=== PATIENT | male | born 1960 | race Two or more races ===

== ENCOUNTER 2021-05-15 07:02 | Observation (INO) ==
[2021-05-15] MEDS ORDERED: methylPREDNISolone 125 mg 2 ML VIAL ONE (07:05)
[2021-05-15] MEDS ORDERED: Albuterol/Ipratropium NEB.SOL (2.5/0.5 MG) 3 ML NEB.SOLN ONE ×2 (07:05→07:09)
[2021-05-15] MEDS ORDERED: Magnesium Sulfate 2 gm BAG 2 GM/50 ML BAG ONE (07:06)
[2021-05-15] MEDS ORDERED: Albuterol/Ipratropium NEB.SOL (2.5/0.5 MG) 3 ML NEB.SOLN INH ONE ×3 (07:10)
[2021-05-15] MEDS ORDERED: Magnesium Sulfate 2 gm BAG 2 GM/50 ML BAG IVPB ONE ×2 (07:10→08:00)
[2021-05-15] MEDS ORDERED: methylPREDNISolone 125 mg 2 ML VIAL IV ONE (07:10)
[2021-05-15] MEDS ORDERED: NS 0.9% 1000 ml BAG 1,000 ML IV ONE (07:13)
[2021-05-15 07:26] LABS: PCO2 Arterial 34 mmHg (35-45); PO2 Arterial 169 mmHg (80-100)
[2021-05-15 07:44] LABS: ABS Basophils 0.1 10^3/ul (0-0.2); ABS Eosinophils 0.1 10^3/ul (0-0.6); ABS Lymphocytes 1.1 10^3/ul (1.0-4.8); ABS Monocytes 0.7 10^3/ul (0-0.8); ABS Neutrophils 9.1 10^3/ul (1.5-7.7); Eosinophil % 1.1 %; Hematocrit 35 % (42-52); Hemoglobin 11.6 g/dL (14.0-18.0); Lymphocyte % 9.8 %; Mean Corpuscular HGB Conc 33 g/dL (31-36); Mean Corpuscular Hemoglobin 28 pg (27-31); Mean Corpuscular Volume 84 fL (80-94); Mean Platelet Volume 8.1 fL (7.4-10.4); Platelet Count 343 10^3/uL (150-450); Red Blood Count 4.21 10^6 /uL (4.18-5.48); Red Cell Distribution Width 16 % (10-15); White Blood Count 11.1 10^3/uL (3.5-10.8)
[2021-05-15 07:57] LABS: Troponin I 0.02 ng/mL (<0.03)
[2021-05-15 07:58] LABS: ALT 17 U/L (7-52); AST 25 U/L (13-39); Albumin 4.4 g/dL (3.2-5.2); Albumin/Globulin Ratio 1.2 (1-3); Alkaline Phosphatase 73 U/L (35-149); Anion Gap 13 mmol/L (2-11); Blood Urea Nitrogen 11 mg/dL (6-24); CO2 Carbon Dioxide 27 mmol/L (22-32); Calcium 9.2 mg/dL (8.6-10.3); Chloride 98 mmol/L (101-111); Globulin 3.7 g/dL (2-4); Glucose 146 mg/dL (70-100); Magnesium 1.1 mg/dL (1.9-2.7); Potassium 3.3 mmol/L (3.5-5.0); Sodium 138 mmol/L (135-145); Total Protein 8.1 g/dL (6.4-8.9); eGFR CKD-EPI 98.4 (>60)
[2021-05-15] MEDS ORDERED: Furosemide 40 mg/4 ml IV VIAL IV SLOW PU ONE (08:07)
[2021-05-15] MEDS ORDERED: Potassium Chlor 20 meq TAB.ER PO ONE (08:14)
[2021-05-15 08:20] LABS: Alcohol, S < 13 mg/dL (<13)
[2021-05-15] MEDS ORDERED: Dextrose 50% Syringe 50 ml 25 GM/50 ML SYRINGE IV PUSH PRN ×3 (08:21→18:37)
[2021-05-15] MEDS ORDERED: Ondansetron 4 mg VIAL 2 MG/ML 2 ml VIAL IV PRN (08:26)
[2021-05-15] MEDS ORDERED: Thiamine 100 MG/ML 2 ml VIAL (200 mg) IM ONE (09:01)
[2021-05-15] MEDS ORDERED: Albuterol HFA INHALER 8 gm MDI INH PRN (09:16)
[2021-05-15] MEDS ORDERED: Albuterol 2.5mg/3 ml (0.083%) NEB.SOLN INH PRN (09:16)
[2021-05-15] MEDS ORDERED: Nicotine Lozenge mini 2 MG LOZNG.MINI MT PRN (09:24)
[2021-05-15] MEDS: Nicotine PATCH 14 MG/24 HR PATCH TRANSDERM SCH (10:36)
[2021-05-15] MEDS: PAIN RELIEVING RUB (MENTHOL/SALICYLATE) 1 APPLIC TUBE TOPICAL SCH ×3 (11:00→20:20)
[2021-05-15 11:52] LABS: Hepatitis C Antibody Negative (Negative)
[2021-05-15] MEDS ORDERED: Furosemide 20 mg/2 ml IV VIAL IV SLOW PU ONE (17:00)
[2021-05-15 17:16] LABS: Anion Gap 12 mmol/L (2-11); CO2 Carbon Dioxide 25 mmol/L (22-32); Calcium 8.7 mg/dL (8.6-10.3); Chloride 96 mmol/L (101-111); Magnesium 1.9 mg/dL (1.9-2.7); Potassium 4.2 mmol/L (3.5-5.0); Sodium 133 mmol/L (135-145)
[2021-05-15 17:22] LABS: Blood Urea Nitrogen 16 mg/dL (6-24); Glucose 436 mg/dL (70-100); Glucose Confirmatory 436 mg/dL (70-100); eGFR CKD-EPI 83.2 (>60)
[2021-05-15 19:09] LABS: Glucose Confirmatory 441 mg/dL (70-100)
[2021-05-15] MEDS: Insulin GLARGINE 100 un/ml 10 ml VIAL SUBCUT SCH (19:19)
[2021-05-15 19:52] LABS: HIV 4th Generation Nonreactive (Nonreactive)
[2021-05-15] MEDS: Lidocaine PATCH 5% PATCH TRANSDERM SCH (21:51)
[2021-05-15] MEDS: Lidocaine Patch REMOVE NOTE PATCH OFF SCH (21:53)
[2021-05-16 05:51] LABS: ABS Lymphocytes 0.9 10^3/ul (1.0-4.8); ABS Monocytes 0.5 10^3/ul (0-0.8); ABS Neutrophils 8.7 10^3/ul (1.5-7.7); Hematocrit 35 % (42-52); Hemoglobin 11.5 g/dL (14.0-18.0); Lymphocyte % 8.9 %; Mean Corpuscular HGB Conc 33 g/dL (31-36); Mean Corpuscular Hemoglobin 28 pg (27-31); Mean Corpuscular Volume 83 fL (80-94); Mean Platelet Volume 7.7 fL (7.4-10.4); Platelet Count 291 10^3/uL (150-450); Red Blood Count 4.16 10^6 /uL (4.18-5.48); Red Cell Distribution Width 16 % (10-15); White Blood Count 10.1 10^3/uL (3.5-10.8)
[2021-05-16 06:13] LABS: Calcium 8.2 mg/dL (8.6-10.3); Magnesium 1.7 mg/dL (1.9-2.7); Potassium 3.5 mmol/L (3.5-5.0); eGFR CKD-EPI 100.6 (>60)
[2021-05-16] MEDS: CMCS:FLUTICAS/UMECLI/VILANT 100-62.5-25 MDI (NF) INH SCH (07:36)
[2021-05-16] MEDS: Nicotine PATCH 14 MG/24 HR PATCH TRANSDERM SCH (07:37)
[2021-05-16] MEDS: PAIN RELIEVING RUB (MENTHOL/SALICYLATE) 1 APPLIC TUBE TOPICAL SCH ×3 (07:38→21:03)
[2021-05-16] MEDS: Furosemide 40 mg/4 ml IV VIAL IV SLOW PU SCH (07:38)
[2021-05-16] MEDS: Lidocaine PATCH 5% PATCH TRANSDERM SCH (07:39)
[2021-05-16] MEDS: DULoxetine DR 60 mg CAP PO SCH (07:41)
[2021-05-16] MEDS: Multivitamins/Minerals TAB PO SCH (07:42)
[2021-05-16] MEDS: Cholecalciferol (VIT D3) 1,000 unit TAB PO SCH (07:42)
[2021-05-16] MEDS ORDERED: CYANOCOBALAMIN 50 MCG PO SCH (09:00)
[2021-05-16] MEDS ORDERED: Magnesium Sulfate 2 gm BAG 2 GM/50 ML BAG IVPB ONE (09:27)
[2021-05-16] MEDS: Potassium Chlor 20 meq TAB.ER PO SCH ×2 (10:18→20:48)
[2021-05-16] MEDS ORDERED: Furosemide 40 mg/4 ml IV VIAL IV SLOW PU ONE (16:00)
[2021-05-16] MEDS: Lidocaine Patch REMOVE NOTE PATCH OFF SCH (20:52)
[2021-05-16] MEDS: Insulin GLARGINE 100 un/ml 10 ml VIAL SUBCUT SCH (21:01)
[2021-05-17 06:30] LABS: Calcium 8.6 mg/dL (8.6-10.3); Magnesium 1.9 mg/dL (1.9-2.7); Potassium 3.6 mmol/L (3.5-5.0); eGFR CKD-EPI 89.4 (>60)
[2021-05-17] MEDS: CMCS:FLUTICAS/UMECLI/VILANT 100-62.5-25 MDI (NF) INH SCH (07:30)
[2021-05-17] MEDS: Furosemide 40 mg/4 ml IV VIAL IV SLOW PU SCH (08:43)
[2021-05-17] MEDS: Potassium Chlor 20 meq TAB.ER PO SCH (08:45)
[2021-05-17] MEDS: Cholecalciferol (VIT D3) 1,000 unit TAB PO SCH (08:46)
[2021-05-17] MEDS: DULoxetine DR 60 mg CAP PO SCH (08:49)
[2021-05-17] MEDS: Multivitamins/Minerals TAB PO SCH (08:50)
[2021-05-17] MEDS: PAIN RELIEVING RUB (MENTHOL/SALICYLATE) 1 APPLIC TUBE TOPICAL SCH (08:56)
[2021-05-17] MEDS: Nicotine PATCH 14 MG/24 HR PATCH TRANSDERM SCH (08:56)
[2021-05-17] MEDS: Lidocaine PATCH 5% PATCH TRANSDERM SCH (09:09)
[2021-05-17 14:13] VITALS: BP 101/59
== END 2021-05-17 14:25 | disposition home or self-care (01) ==
LOC: ED 07:02 → EDHOLD 07:02 → MEDTELE 09:19
PROVIDERS: ADMIT Nurse Practitioner Adult Health; ATTEND Internal Medicine

== ENCOUNTER 2021-07-21 07:24 | Inpatient (IN) ==
[2021-07-21] MEDS ORDERED: methylPREDNISolone 125 mg 2 ML VIAL IV ONE (07:40)
[2021-07-21] MEDS ORDERED: Albuterol/Ipratropium NEB.SOL (2.5/0.5 MG) 3 ML NEB.SOLN INH ONE ×2 (07:40→07:41)
[2021-07-21 08:07] LABS: PCO2 Arterial 35 mmHg (35-45); PO2 Arterial 83 mmHg (80-100)
[2021-07-21] MEDS ORDERED: DOXYcycline 100 MG in NS 0.9% 250 ml 250 ML IVPB ONE (08:14)
[2021-07-21] MEDS ORDERED: NS 0.9% 250 ml 250 ML ONE (08:16)
[2021-07-21 08:29] LABS: Hematocrit 34 % (42-52); Hemoglobin 11.3 g/dL (14.0-18.0); Mean Corpuscular HGB Conc 33 g/dL (31-36); Mean Corpuscular Hemoglobin 28 pg (27-31); Mean Corpuscular Volume 86 fL (80-94); Mean Platelet Volume 8.3 fL (7.4-10.4); Platelet Count 252 10^3/uL (150-450); Red Cell Distribution Width 16 % (10-15); White Blood Count 13.6 10^3/uL (3.5-10.8)
[2021-07-21 08:34] LABS: ALT 11 U/L (7-52); Albumin 3.1 g/dL (3.2-5.2); Alcohol, S < 13 mg/dL (<13); Alkaline Phosphatase 67 U/L (35-149); Blood Urea Nitrogen 19 mg/dL (6-24); CO2 Carbon Dioxide 24 mmol/L (22-32); Calcium 8.7 mg/dL (8.6-10.3); Chloride 106 mmol/L (101-111); Creatine Kinase 121 U/L (10-223); Globulin 3.1 g/dL (2-4); Glucose 128 mg/dL (70-100); Lipase 23 U/L (11.0-82.0); Magnesium 1.3 mg/dL (1.9-2.7); Sodium 139 mmol/L (135-145); Total Protein 6.2 g/dL (6.4-8.9); eGFR CKD-EPI 81.3 (>60)
[2021-07-21 08:58] LABS: Anisocytosis 1+; Polychromasia 1+
[2021-07-21 09:00] LABS: ABS Eosinophils 1.3 10^3/ul (0-0.6); ABS Neutrophils 10.3 10^3/ul (1.5-7.7); Eosinophil % 9.3 %; Lymphocyte % 7.5 %; Nucleated Red Blood Cells % 0.2
[2021-07-21 09:04] LABS: Anion Gap 9 mmol/L (2-11)
[2021-07-21 09:17] LABS: Potassium Redraw 4.1 mmol/L (3.5-5.0)
[2021-07-21 09:49] LABS: High Sensitivity Troponin 1 Hr 29 pg/mL (<20)
[2021-07-21] MEDS ORDERED: Albuterol 2.5mg/3 ml (0.083%) NEB.SOLN INH PRN (09:51)
[2021-07-21] MEDS ORDERED: Dextrose 50% Syringe 50 ml 25 GM/50 ML SYRINGE IV PUSH PRN ×2 (09:54→21:45)
[2021-07-21] MEDS ORDERED: Magnesium Sulf 4 GM/100 ML IV 4,000 MG/100 ML BAG IVPB ONE (11:04)
[2021-07-21] MEDS ORDERED: cefTRIAXone 1 GM ONETIME (Pharmacy Admix) IVPB ONE ×2 (13:00→17:00)
[2021-07-21] MEDS: Multivitamins/Minerals TAB PO SCH (13:09)
[2021-07-21 18:02] LABS: Glucose Confirmatory 443 mg/dL (70-100)
[2021-07-21] MEDS ORDERED: Insulin GLARGINE 100 un/ml 10 ml VIAL ONE (18:33)
[2021-07-21] MEDS: methylPREDNISolone SOD 40 mg/ml 1 ml VIAL IV SCH (18:36)
[2021-07-21] MEDS: Insulin GLARGINE 100 un/ml 10 ml VIAL SUBCUT SCH (18:36)
[2021-07-21] MEDS: Potassium Chlor 20 meq TAB.ER PO SCH (21:24)
[2021-07-21 21:26] LABS: Glucose Confirmatory 454 mg/dL (70-100)
[2021-07-21] MEDS: DOXYcycline 100 MG in NS 0.9% 250 ml 250 ML IVPB SCH (22:00)
[2021-07-22] MEDS: Insulin GLARGINE 100 un/ml 10 ml VIAL SUBCUT SCH (02:57)
[2021-07-22] MEDS: methylPREDNISolone SOD 40 mg/ml 1 ml VIAL IV SCH ×3 (04:00→22:43)
[2021-07-22] MEDS: SPIRIVA Respimat (tiotropium) 2.5 mcg/inh Inhaler INH SCH ×2 (08:03→19:50)
[2021-07-22] MEDS: Multivitamins/Minerals TAB PO SCH (09:58)
[2021-07-22] MEDS: Potassium Chlor 20 meq TAB.ER PO SCH ×2 (09:59→22:39)
[2021-07-22] MEDS: DULoxetine DR 60 mg CAP PO SCH (10:00)
[2021-07-22] MEDS: DOXYcycline 100 MG in NS 0.9% 250 ml 250 ML IVPB SCH ×2 (10:12→22:43)
[2021-07-22] MEDS: Albuterol HFA INHALER 8 gm MDI INH PRN ×2 (10:15→15:16)
[2021-07-22] MEDS ORDERED: Albuterol HFA INHALER 8 gm MDI INH PRN (15:36)
[2021-07-22] MEDS ORDERED: cefTRIAXone VIAL 1,000 MG in NS 0.9% 50 ML 50 ML IVPB SCH (16:00)
[2021-07-23] MEDS: Insulin GLARGINE 100 un/ml 10 ml VIAL SUBCUT SCH (01:44)
[2021-07-23 08:02] VITALS: BP 136/58
[2021-07-23 08:12] LABS: Hematocrit 34 % (42-52); Hemoglobin 10.7 g/dL (14.0-18.0); Mean Corpuscular HGB Conc 32 g/dL (31-36); Mean Corpuscular Hemoglobin 28 pg (27-31); Mean Corpuscular Volume 87 fL (80-94); Platelet Count 290 10^3/uL (150-450); Red Blood Count 3.89 10^6 /uL (4.18-5.48); Red Cell Distribution Width 16 % (10-15); White Blood Count 14.1 10^3/uL (3.5-10.8)
[2021-07-23] MEDS: Multivitamins/Minerals TAB PO SCH (08:46)
[2021-07-23] MEDS: DULoxetine DR 60 mg CAP PO SCH (08:47)
[2021-07-23] MEDS: methylPREDNISolone SOD 40 mg/ml 1 ml VIAL IV SCH (08:47)
[2021-07-23] MEDS: Potassium Chlor 20 meq TAB.ER PO SCH (08:47)
[2021-07-23] MEDS ORDERED: FLUTICAS/UMECLI/VILANT 100-62.5-25 MDI (NF) INH SCH (09:00)
== END 2021-07-23 10:15 | disposition home or self-care (01) | DRG 720 ==
LOC: ED 07:24 → EDHOLD 09:50 → SUATTDRO 09:50 → MEDTELE 16:37
PROVIDERS: ADMIT Internal Medicine; ATTEND Hospitalist

== ENCOUNTER 2022-02-28 11:40 | Observation (INO) ==
[2022-02-28 12:40] LABS: Hematocrit 30 % (42-52); Hemoglobin 9.4 g/dL (14.0-18.0); Mean Corpuscular HGB Conc 32 g/dL (31-36); Mean Corpuscular Hemoglobin 27 pg (27-31); Mean Corpuscular Volume 85 fL (80-94); Platelet Count 252 10^3/uL (150-450); Red Blood Count 3.47 10^6 /uL (4.18-5.48); Red Cell Distribution Width 16 % (10-15); White Blood Count 7.1 10^3/uL (3.5-10.8)
[2022-02-28 12:50] LABS: INR 1.55 (0.89-1.11)
[2022-02-28 13:03] LABS: High Sens Troponin Baseline 24 pg/mL (<20)
[2022-02-28 13:15] LABS: ALT 25 U/L (7-52); AST 35 U/L (13-39); Albumin 3.3 g/dL (3.2-5.2); Albumin/Globulin Ratio 1.3 (1-3); Alkaline Phosphatase 94 U/L (35-149); Blood Urea Nitrogen 10 mg/dL (6-24); CO2 Carbon Dioxide 30 mmol/L (22-32); Calcium 7.3 mg/dL (8.6-10.3); Chloride 102 mmol/L (101-111); Globulin 2.6 g/dL (2-4); Glucose 252 mg/dL (70-100); Sodium 142 mmol/L (135-145); Total Protein 5.9 g/dL (6.4-8.9); eGFR CKD-EPI 102.9 (>60)
[2022-02-28 13:18] LABS: Anion Gap 10 mmol/L (2-11); Potassium 2.6 mmol/L (3.5-5.0)
[2022-02-28 14:06] LABS: High Sensitivity Troponin 1 Hr 23 pg/mL (<20)
[2022-02-28] MEDS ORDERED: Potassium Chlor 20 meq TAB.ER PO ONE (14:12)
[2022-02-28] MEDS ORDERED: Furosemide 40 mg/4 ml IV VIAL IV ONE (14:20)
[2022-02-28 14:22] LABS: RBC Morphology Normal (Normal)
[2022-02-28 14:23] LABS: ABS Basophils 0.1 10^3/ul (0-0.2); ABS Eosinophils 0.5 10^3/ul (0-0.6); ABS Lymphocytes 1.2 10^3/ul (1.0-4.8); ABS Monocytes 0.5 10^3/ul (0-0.8); ABS Neutrophils 4.8 10^3/ul (1.5-7.7); Eosinophil % 7.1 %; Lymphocyte % 17.3 %
[2022-02-28] MEDS: KCL 20 MEQ/100 ML IVPREMIX 20 MEQ/100 ML BAG IV SCH ×2 (15:50→23:07)
[2022-02-28] MEDS ORDERED: Levalbuterol HFA INHALER MDI INH PRN (15:55)
[2022-02-28 17:54] LABS: TSH Ultra Thyroid Stim Horm 1.34 mcIU/mL (0.34-5.60)
[2022-02-28 21:08] LABS: Calcium 7.3 mg/dL (8.6-10.3); Potassium 3.1 mmol/L (3.5-5.0); eGFR CKD-EPI 80.3 (>60)
[2022-02-28] MEDS: Magnesium Sulf 4 GM/100 ML IV 4,000 MG/100 ML BAG IVPB ONE (21:27)
[2022-02-28 21:33] LABS: HIV 4th Generation Nonreactive (Nonreactive)
[2022-02-28] MEDS: Insulin GLARGINE 100 un/ml 10 ml VIAL SUBCUT SCH (21:49)
[2022-02-28] MEDS ORDERED: Potassium Chloride LIQUID 20 MEQ/15 ML LIQUID PO ONE (22:29)
[2022-02-28] MEDS ORDERED: Albuterol/Ipratropium NEB.SOL (2.5/0.5 MG) 3 ML NEB.SOLN INH PRN (23:11)
[2022-03-01] MEDS: Magnesium Sulf 4 GM/100 ML IV 4,000 MG/100 ML BAG IVPB ONE (01:13)
[2022-03-01 06:32] LABS: ABS Basophils 0.1 10^3/ul (0-0.2); ABS Eosinophils 0.7 10^3/ul (0-0.6); ABS Lymphocytes 1.7 10^3/ul (1.0-4.8); ABS Monocytes 0.6 10^3/ul (0-0.8); ABS Neutrophils 5.2 10^3/ul (1.5-7.7); Eosinophil % 8.2 %; Hematocrit 29 % (42-52); Hemoglobin 9.2 g/dL (14.0-18.0); Lymphocyte % 20.7 %; Mean Corpuscular HGB Conc 32 g/dL (31-36); Mean Corpuscular Hemoglobin 27 pg (27-31); Mean Corpuscular Volume 85 fL (80-94); Mean Platelet Volume 7.7 fL (7.4-10.4); Nucleated Red Blood Cells % 0.1; Platelet Count 246 10^3/uL (150-450); Red Blood Count 3.43 10^6 /uL (4.18-5.48); Red Cell Distribution Width 16 % (10-15); White Blood Count 8.2 10^3/uL (3.5-10.8)
[2022-03-01 06:52] LABS: Albumin 3.3 g/dL (3.2-5.2); Albumin/Globulin Ratio 1.3 (1-3); Calcium 7.4 mg/dL (8.6-10.3); Globulin 2.6 g/dL (2-4); Potassium 3.3 mmol/L (3.5-5.0); Total Bilirubin 0.6 mg/dL (0.2-1.0); Total Protein 5.9 g/dL (6.4-8.9); eGFR CKD-EPI 103.3 (>60)
[2022-03-01] MEDS ORDERED: Potassium Chlor 20 meq TAB.ER PO ONE (07:34)
[2022-03-01 08:05] LABS: Magnesium 1.1 mg/dL (1.9-2.7)
[2022-03-01] MEDS: DULoxetine DR 60 mg CAP PO SCH (08:56)
[2022-03-01] MEDS ORDERED: Albuterol 2.5mg/3 ml (0.083%) NEB.SOLN INH PRN (09:04)
[2022-03-01] MEDS ORDERED: Magnesium Sulf 4 GM/100 ML IV 4,000 MG/100 ML BAG IVPB ONE (09:50)
[2022-03-01 11:08] LABS: Alcohol, S < 13 mg/dL (<13)
[2022-03-01] MEDS ORDERED: Potassium Chlor 20 meq TAB.ER PO SCH (13:00)
[2022-03-01 14:57] LABS: Calcium 7.6 mg/dL (8.6-10.3); Magnesium 2.1 mg/dL (1.9-2.7); Potassium 3.9 mmol/L (3.5-5.0); eGFR CKD-EPI 102.1 (>60)
[2022-03-01] MEDS ORDERED: Lidocaine PATCH 5% PATCH TRANSDERM ONE (20:32)
[2022-03-01] MEDS: Insulin GLARGINE 100 un/ml 10 ml VIAL SUBCUT SCH (21:02)
[2022-03-02] MEDS ORDERED: Potassium Chlor 20 meq TAB.ER PO ONE (06:00)
[2022-03-02 07:38] LABS: Calcium 7.9 mg/dL (8.6-10.3); Potassium 3.9 mmol/L (3.5-5.0); eGFR CKD-EPI 98.4 (>60)
[2022-03-02] MEDS ORDERED: CMCS:FLUTICAS/UMECLI/VILANT 100-62.5-25 MDI (NF) INH SCH (09:00)
[2022-03-02] MEDS ORDERED: Potassium Chlor 20 meq TAB.ER PO SCH (09:00)
[2022-03-02] MEDS: DULoxetine DR 60 mg CAP PO SCH (10:40)
[2022-03-02 13:38] VITALS: BP 104/65
== END 2022-03-02 14:30 | disposition home or self-care (01) ==
LOC: EDHOLD 11:40 → ED 11:40 → SUATTDRO 14:45 → EDHOLD 17:59 → MEDTELE 18:08
PROVIDERS: ADMIT Hospitalist; ATTEND Student in an Organized Health Care Education/Training Program

== ENCOUNTER 2022-07-06 11:36 | Inpatient (IN) ==
[2022-07-06] MEDS ORDERED: D10W 1000 ml BAG 1,000 ML IV SCH ×2 (12:00→18:56)
[2022-07-06 13:18] LABS: Venous Bicarbonate HCO3 25.5 mmol/L (24-28)
[2022-07-06 13:20] LABS: ABS Eosinophils 0.3 10^3/ul (0-0.6); ABS Lymphocytes 1.3 10^3/ul (1.0-4.8); ABS Monocytes 0.8 10^3/ul (0-0.8); ABS Neutrophils 11.9 10^3/ul (1.5-7.7); Eosinophil % 1.8 %; Hematocrit 32 % (42-52); Lymphocyte % 8.9 %; Mean Corpuscular Hemoglobin 24 pg (27-31); Mean Corpuscular Hgb Conc 31 g/dL (31-36); Mean Corpuscular Volume 78 fL (80-94); Mean Platelet Volume 7.8 fL (7.4-10.4); Nucleated Red Blood Cells % 0.1; Platelet Count 212 10^3/uL (150-450); Red Blood Count 4.12 10^6 /uL (4.18-5.48); Red Cell Distribution Width 19 % (10-15); White Blood Count 14.2 10^3/uL (3.5-10.8)
[2022-07-06 14:26] LABS: Albumin 3.6 g/dL (3.2-5.2); Albumin/Globulin Ratio 1.1 (1-3); Calcium 8.5 mg/dL (8.6-10.3); Creatinine, Serum 0.81 mg/dL (0.67-1.17); Globulin 3.2 g/dL (2-4); Potassium 3.7 mmol/L (3.5-5.0); Total Bilirubin 2.3 mg/dL (0.2-1.0); Total Protein 6.8 g/dL (6.4-8.9); eGFR CKD-EPI 100.3 (>60)
[2022-07-06] MEDS ORDERED: Albuterol 2.5mg/3 ml (0.083%) NEB.SOLN INH ONE (14:36)
[2022-07-06] MEDS ORDERED: Iodixanol (CONTRAST) 320 MG/ML 100 ML SDV IV ONE (16:47)
[2022-07-06] MEDS ORDERED: Thiamine 100 MG/ML 2 ml VIAL (200 mg) IM ONE (19:04)
[2022-07-06] MEDS ORDERED: LORazepam 2 mg VIAL 1 ml IV PUSH SCH (20:00)
[2022-07-06 20:31] LABS: Ferritin 221.2 ng/mL (24-336)
[2022-07-06] MEDS: Multivitamins/Minerals TAB PO SCH (21:15)
[2022-07-06 22:28] LABS: INR 3.13 (0.88-1.18)
[2022-07-07 06:03] LABS: Hematocrit 31 % (42-52); Hemoglobin 9.8 g/dL (14.0-18.0); Mean Corpuscular Hemoglobin 25 pg (27-31); Mean Corpuscular Hgb Conc 31 g/dL (31-36); Mean Corpuscular Volume 78 fL (80-94); Platelet Count 203 10^3/uL (150-450); Red Blood Count 4.01 10^6 /uL (4.18-5.48); Red Cell Distribution Width 20 % (10-15); White Blood Count 8.1 10^3/uL (3.5-10.8)
[2022-07-07 07:00] LABS: ALT 201 U/L (7-52); Albumin 3.2 g/dL (3.2-5.2); Albumin/Globulin Ratio 1.1 (1-3); Alkaline Phosphatase 130 U/L (35-149); Blood Urea Nitrogen 17 mg/dL (6-24); CO2 Carbon Dioxide 24 mmol/L (22-32); Calcium 7.9 mg/dL (8.6-10.3); Chloride 99 mmol/L (101-111); Creatinine, Serum 0.85 mg/dL (0.67-1.17); Globulin 2.9 g/dL (2-4); Glucose 144 mg/dL (70-100); Sodium 133 mmol/L (135-145); Total Protein 6.1 g/dL (6.4-8.9); eGFR CKD-EPI 98.9 (>60)
[2022-07-07 07:23] LABS: Anion Gap 10 mmol/L (2-11)
[2022-07-07 07:28] LABS: Anisocytosis 2+
[2022-07-07 07:29] LABS: Polychromasia 1+
[2022-07-07 08:51] LABS: Protime (Maddrey) 34.6 seconds (9.5-12.8)
[2022-07-07] MEDS: FLUTICAS/UMECLI/VILANT 200-62.5-25 MDI (NF) INH SCH (10:01)
[2022-07-07] MEDS: Potassium Chlor 20 meq TAB.ER PO SCH (10:22)
[2022-07-07] MEDS: Multivitamins/Minerals TAB PO SCH (10:23)
[2022-07-07 11:24] LABS: Albumin 3.3 g/dL (3.2-5.2); Potassium 3.4 mmol/L (3.5-5.0); Total Bilirubin 1.9 mg/dL (0.2-1.0)
[2022-07-07 11:30] LABS: Albumin/Globulin Ratio 1.2 (1-3); Creatinine, Serum 0.79 mg/dL (0.67-1.17); Globulin 2.8 g/dL (2-4); Total Protein 6.1 g/dL (6.4-8.9); eGFR CKD-EPI 101.1 (>60)
[2022-07-07] MEDS ORDERED: Potassium Chlor 20 meq TAB.ER PO ONE (13:04)
[2022-07-07] MEDS: Levalbuterol HFA INHALER MDI INH PRN (14:44)
[2022-07-07 14:46] LABS: C Reactive Protein 140.72 mg/L (<8.01)
[2022-07-07] MEDS ORDERED: Dextrose 50% Syringe 50 ml 25 GM/50 ML SYRINGE IV PUSH PRN (16:29)
[2022-07-07 17:12] LABS: Total Bilirubin 2.3 mg/dL (0.2-1.0)
[2022-07-08 06:16] LABS: ABS Basophils 0.1 10^3/ul (0-0.2); ABS Eosinophils 0.4 10^3/ul (0-0.6); ABS Lymphocytes 1.4 10^3/ul (1.0-4.8); ABS Monocytes 0.6 10^3/ul (0-0.8); ABS Neutrophils 5.3 10^3/ul (1.5-7.7); Hematocrit 30 % (42-52); Hemoglobin 9.2 g/dL (14.0-18.0); Lymphocyte % 17.7 %; Mean Corpuscular Hemoglobin 24 pg (27-31); Mean Corpuscular Hgb Conc 31 g/dL (31-36); Mean Corpuscular Volume 78 fL (80-94); Mean Platelet Volume 8.1 fL (7.4-10.4); Nucleated Red Blood Cells % 0.1; Platelet Count 197 10^3/uL (150-450); Red Blood Count 3.79 10^6 /uL (4.18-5.48); Red Cell Distribution Width 20 % (10-15); White Blood Count 7.7 10^3/uL (3.5-10.8)
[2022-07-08 06:22] LABS: INR 3.01 (0.88-1.18)
[2022-07-08 06:34] LABS: Albumin 3.1 g/dL (3.2-5.2); Albumin/Globulin Ratio 1.1 (1-3); Calcium 7.6 mg/dL (8.6-10.3); Creatinine, Serum 1.05 mg/dL (0.67-1.17); Globulin 2.7 g/dL (2-4); Potassium 3.6 mmol/L (3.5-5.0); Total Bilirubin 1.4 mg/dL (0.2-1.0); Total Protein 5.8 g/dL (6.4-8.9); eGFR CKD-EPI 80.8 (>60)
[2022-07-08] MEDS: FLUTICAS/UMECLI/VILANT 200-62.5-25 MDI (NF) INH SCH (07:14)
[2022-07-08] MEDS: Levalbuterol HFA INHALER MDI INH PRN ×2 (07:15→19:38)
[2022-07-08] MEDS: Potassium Chlor 20 meq TAB.ER PO SCH (08:58)
[2022-07-08] MEDS: Multivitamins/Minerals TAB PO SCH (08:58)
[2022-07-08 09:57] LABS: Urine Appearance Cloudy; Urine Bilirubin Negative (Negative); Urine Blood 1+ (Negative); Urine Color Amber; Urine Glucose Negative (Negative); Urine Ketones Negative (Negative); Urine Nitrite Negative (Negative); Urine Protein 2+(100 mg/dL) (Negative); Urine Specific Gravity 1.019 (1.002-1.030); Urine Urobilinogen Positive (Negative)
[2022-07-08 10:05] LABS: Urine Bacteria Absent (Absent); Urine Red Blood Cell 2+(6-10/hpf) (Absent); Urine Squamous Epithelial Cell Present (Absent); Urine White Blood Cell 1+(6-10/hpf) (Absent)
[2022-07-08] MEDS ORDERED: Benzocaine (plain) Lozenge 15 MG PO PRN (21:48)
[2022-07-09] MEDS ORDERED: Benzocaine (plain) Lozenge 15 MG MT PRN (05:14)
[2022-07-09] MEDS: FLUTICAS/UMECLI/VILANT 200-62.5-25 MDI (NF) INH SCH (07:39)
[2022-07-09] MEDS: Levalbuterol HFA INHALER MDI INH PRN (07:40)
[2022-07-09 07:45] LABS: ABS Basophils 0.1 10^3/ul (0-0.2); ABS Eosinophils 0.4 10^3/ul (0-0.6); ABS Lymphocytes 1.5 10^3/ul (1.0-4.8); ABS Monocytes 0.9 10^3/ul (0-0.8); ABS Neutrophils 6.4 10^3/ul (1.5-7.7); Eosinophil % 4.5 %; Hematocrit 31 % (42-52); Lymphocyte % 16.6 %; Mean Corpuscular Hemoglobin 26 pg (27-31); Mean Corpuscular Hgb Conc 32 g/dL (31-36); Mean Corpuscular Volume 79 fL (80-94); Mean Platelet Volume 8.2 fL (7.4-10.4); Nucleated Red Blood Cells % 0.1; Platelet Count 201 10^3/uL (150-450); Red Blood Count 3.92 10^6 /uL (4.18-5.48); Red Cell Distribution Width 20 % (10-15); White Blood Count 9.3 10^3/uL (3.5-10.8)
[2022-07-09 08:17] LABS: Calcium 7.9 mg/dL (8.6-10.3); Creatinine, Serum 0.95 mg/dL (0.67-1.17); Potassium 4.2 mmol/L (3.5-5.0); eGFR CKD-EPI 91.1 (>60)
[2022-07-09] MEDS: Multivitamins/Minerals TAB PO SCH (08:17)
[2022-07-09] MEDS: Potassium Chlor 20 meq TAB.ER PO SCH (08:17)
[2022-07-09] MEDS ORDERED: Albuterol/Ipratropium NEB.SOL (2.5/0.5 MG) 3 ML NEB.SOLN INH PRN (09:52)
[2022-07-09] MEDS ORDERED: Albuterol/Ipratropium NEB.SOL (2.5/0.5 MG) 3 ML NEB.SOLN ONE (09:59)
[2022-07-09 10:24] VITALS: BP 96/62
== END 2022-07-09 11:45 | disposition home or self-care (01) | DRG 380 ==
LOC: ED 11:36 → EDHOLD 11:36 → SUATTDRO 19:29 → EDHOLD 07-07 08:31 → MED 07-07 09:58 → SUATTDRO 07-08 14:53
PROVIDERS: ADMIT Internal Medicine; ATTEND Internal Medicine